=== PATIENT | male | born 1960 | race Caucasian/White ===

== ENCOUNTER 2018-01-25 04:07 | Observation (INO) | payer BC ==
[2018-01-25 04:37] LABS: ABS Basophils 0.1 10^3/ul (0-0.2); ABS Eosinophils 0.2 10^3/ul (0-0.6); ABS Lymphocytes 3.3 10^3/ul (1.0-4.8); ABS Monocytes 0.9 10^3/ul (0-0.8); ABS Neutrophils 4.2 10^3/ul (1.5-7.7); ABS Nucleated RBC 0 10^3/ul; Eosinophil % 1.9 % (0-6); Hematocrit 44 % (42-52); Hemoglobin 15.3 g/dl (14.0-18.0); Lymphocyte % 38.3 % (25-47); Mean Corpuscular HGB Conc 35 g/dl (31-36); Mean Corpuscular Hemoglobin 29 pg (27-31); Mean Corpuscular Volume 83 fL (80-94); Mean Platelet Volume 8.1 um3 (7.4-10.4); Nucleated Red Blood Cells % 0.1; Platelet Count 253 10^3/ul (150-450); Red Blood Count 5.23 10^6/ul (4.0-5.4); Red Cell Distribution Width 15 % (10.5-15); White Blood Count 8.7 10^3/ul (3.5-10.8)
[2018-01-25 04:46] LABS: INR 0.84 (0.77-1.02)
[2018-01-25 04:55] LABS: EGFR Non-African American 77.6 (>60)
[2018-01-25] MEDS ORDERED: Nitroglycerin TAB 0.4 MG* 0.4 MG TAB SL ONE (05:01)
[2018-01-25] MEDS ORDERED: Nitroglycerin TAB 0.4 MG* 0.4 MG TAB ONE (05:01)
[2018-01-25] MEDS ORDERED: Pantoprazole IV* 40 MG IV ONE (05:02)
[2018-01-25] MEDS ORDERED: Iohexol 350* (CONTRAST) 500 ML MDV IV ONE (05:25)
[2018-01-25] MEDS ORDERED: NS 0.9% 1000 ML* 1,000 ML IV ONE (06:55)
--- NOTE | 2018-01-25 08:33 | RAD ---
Indication: Shortness of breath. Contrast: Administered 87.0 ml of Contrast -- mg/ml CTA of the chest was performed without IV contrast demonstration. Coronal and sagittal reconstructed images were obtained. The pulmonary arterial tree is well opacified. There are no filling defects present to suggest pulmonary The thoracic aorta demonstrates no evidence of aortic dissection. No aneurysmal dilatation is noted. Inferior thyroid lobes are unremarkable. Small 3 to 5 mm pretracheal and precarinal nodes are noted. Small left hilar lymph nodes are noted measuring approximately 10 mm. Left hilar lymph node measures 11 mm. The heart demonstrates no pericardial effusion. Trachea and major bronchi appear patent. The lung apices are grossly unremarkable. Dependent changes are noted in both lung bases. No alveolar consolidation is noted. The axilla demonstrates no evidence of abnormal adenopathy. The visualized abdominal organs are otherwise unremarkable. Hepatic steatosis is otherwise noted. IMPRESSION: No definite evidence of pulmonary embolus is noted. No evidence of thoracic aortic dissection is noted. Minimal dependent atelectasis is noted. Hepatic steatosis.
[2018-01-25] MEDS ORDERED: Aspirin 81 mg CHEW TAB* 81 MG TAB.CHEW PO ONE (08:55)
[2018-01-25] MEDS ORDERED: Al Hydrox/Mg Hydrox/Simet LIQ* 30 ML UDC PO PRN ×2 (09:23→11:42)
--- NOTE | 2018-01-25 09:41 | ED ---
I, Kajal Harper, scribed for Gino Coy MD on 01/25/18 at 0732 . Progress - Progress Note Progress Note: This pr is a sign out from Dr. Pan at shift change pending CTA chest/thorax. - Results/Orders Results/Orders: CTA chest/thorax reveals: No definite evidence of pulmonary embolus is noted. No evidence of thoracic aortic dissection is noted. Minimal dependent atelectasis is noted. Hepatic steatosis. ED physician has reviewed this report. Re-Evaluation - Re-Evaluation First Eval Re-Evaluation Time: 08:50 Change: Unchanged - ED physician discussed imaging results and plan of admission with the pt and the pt understands and agrees to admission. Course/Dx - Course Course Of Treatment: DISCUSSED RESULTS WITH PATIENT AND . ADMIT HOSPITALIST. - Diagnoses Provider Diagnoses: Shortness of breath, Chest pressure - Provider Notifications Discussed Care Of Patient With: Yessenia Reed Time Discussed With Above Provider: 09:19 Instructed by Provider To: Admit As Inpatient Discharge - Sign-Out/Discharge Documenting (check all that apply): Discharge/Admit/Transfer - Discharge Plan Condition: Stable Disposition: ADMITTED TO [facility] Referrals: Cesario Nguyen MD [Primary Care Provider] - - Billing Disposition and Condition Condition: STABLE Disposition: [facility] [place] The documentation as recorded by the Leroy mane Stephanie accurately reflects the service I personally performed and the decisions made by , Gino Coy MD.
--- NOTE | 2018-01-25 09:50 | RAD ---
Indication: Shortness of breath. 2 views of the chest including dual energy PA views demonstrate no mediastinal shift. Heart is of normal size and configuration. Lung peterson are clear. No changes noted since previous exam of December 10, 2015. IMPRESSION: NO ACTIVE CARDIOPULMONARY DISEASE IS NOTED.
[2018-01-25] MEDS ORDERED: Naproxen TAB* 250 MG PO PRN (10:26)
[2018-01-25] MEDS ORDERED: Gaviscon CHEW TAB* 1 TAB PO PRN (10:26)
[2018-01-25] MEDS: Enoxaparin(*) 40 MG/0.4 ML SYR SUBCUT SCH (11:05)
--- NOTE | 2018-01-25 13:59 | HP ---
HISTORY AND PHYSICAL: DATE OF ADMISSION: 01/25/18 TIME OF ADMISSION: 10:15 a.m. PRIMARY CARE PHYSICIAN: Dr. Nguyen. CHIEF COMPLAINT: Chest pain. HISTORY OF PRESENT ILLNESS: This is a 57-year-old man with no past medical history who presents to the ED after he woke up with chest pressure and shortness of breath at 12:30 a.m. He has had an uneventful evening and went to bed without difficulty and woke up suddenly at 12:30 with what he describes as a "sharp hiccup and burning in his chest," which he occasionally does get and describes it as reflux but what was different this time was that he felt that he could not catch his breath and had a heaviness in the middle of his chest. The heaviness did not radiate and he cannot really describe it as pain, just a pressure and the shortness of breath had also never happened to him before in the middle of the night. This discomfort began to improve before EMS arrived and resolved in the emergency department after he got sublingual nitroglycerin. The shortness of breath and heaviness have also associated with a cough and at this time, he feels back to normal. This has never happened to him before; however, he did come to the emergency department about a year ago with chest pain that was thought to be musculoskeletal and he says he has had occasional chest tightness about twice in the past year. Other associated symptoms include recent lower extremity edema, decreased exercise tolerance, dyspnea on exertion, and a 20-pound weight gain in a few months. 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 He denies recent illness. Denies cough, sore throat, rhinorrhea, fevers, chills , nausea, vomiting, diarrhea, or constipation. PAST MEDICAL HISTORY: 1. Osteoarthritis status post TKA in September. 2. Lipomas, 3 of which have been excised. HOME MEDICATIONS: 1. Aleve p.r.n. 2. Gaviscon p.r.n. FAMILY HISTORY: He believes his dad had angina in his 50s. He does have brothers who have no medical history that he knows of and he does not know anyone in his family who has had coronary artery disease at a young age or cardiac at a young age. 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 He quit smoking several years ago but he smoked 4 packs per day for 30 years. He does not use alcohol and does not use any other drugs. PHYSICAL EXAMINATION GENERAL: Alert, obese man in no distress, resting on the stretcher comfortably. VITAL SIGNS: Temperature 98.3, heart rate 80, respiratory rate 18, pulse ox 96 % on room air, blood pressure 118/78. HEENT: Pupils equal, round and reactive to light. Oral mucosa is moist with no pharyngeal exudates or erythema. NECK: I cannot appreciate JVP. No cervical or supraclavicular lymphadenopathy. LUNGS: Clear bilaterally. No wheezes or rhonchi. CHEST: Regular rate and rhythm. No murmurs. I cannot feel his PMI. ABDOMEN: Soft, nontender, and nondistended. No guarding or rebound. Healed incision is present in the left upper quadrant. EXTREMITIES: No edema. No rashes. No ulcers. Healed TKA incision is noted on the right knee. LABORATORY DATA: White blood cells 8.7, hemoglobin 15.3, platelets 253. INR 0.84. Sodium 135, potassium 4.2, chloride 107, bicarb 23, creatinine 1.0, glucose 108. Troponin at 0423 is 0.00, at 0716 is 0.00, and at 10 o'clock is 0.00. BNP is 6. IMAGING: CT angio shows no definite evidence of PE noted, no evidence of thoracic aortic dissection noted, minimal dependent atelectasis is noted and hepatic steatosis. Chest x-ray: No active cardiopulmonary disease noted. This is the radiologist' s read. EKG: Normal sinus rhythm at 67, normal axis, normal intervals, no Q waves, no chamber hypertrophy, no ST change and an isolated T-wave inversion is noted in lead 3. ASSESSMENT AND PLAN: This is a 57-year-old man with no known past medical history who presents today with hiccups, chest heaviness, and shortness of breath that woke him from sleep at 12:30 a.m. 1. Chest pressure and shortness of breath. The differential for this is broad ; however, we have ruled out acute coronary syndrome with 3 negative troponins and nonischemic EKG. Still given his risk factors, I think an inpatient stress test is warranted. As such, in the setting of my concern for PND as he describes this morning, I would like to get a stress echocardiogram tomorrow. We will monitor him on telemetry. I also would like to do a trending pulse ox overnight to rule out obstructive sleep apnea and I am also keeping a GI source on my differential for the etiology of his symptoms that woke him overnight. 2. Hepatic steatosis. This was an incidental finding on his CT angio. I will discuss this finding with him and encourage weight loss and a low-fat diet and discussed the possibility of this progressing to cirrhosis. 3. Osteoarthritis. Continue Aleve p.r.n. 4. DVT prophylaxis. Lovenox daily. 5. Full code. TIME SPENT: 60 minutes was spent on this admission with over 30 minutes spent face- to-face with the patient. [id number]/[facility] #: [id number] JOSE A
--- NOTE | 2018-01-25 15:35 | RAD ---
Indication: Leg edema. Duplex Doppler sonography of the deep venous system of both lower extremities was performed. Bilaterally the common femoral veins, proximal greater saphenous veins, proximal deep femoral veins, femoral veins, popliteal veins, posterior tibial veins and left peroneal veins appear patent and compressible. Right peroneal veins are not visualized. IMPRESSION: NO EVIDENCE OF DEEP VENOUS THROMBOSIS OF EITHER LOWER EXTREMITY IS PRESENT. RIGHT PERONEAL VEINS ARE NOT VISUALIZED..
[2018-01-26 04:17] VITALS: BP 130/81
[2018-01-26] MEDS: Enoxaparin(*) 40 MG/0.4 ML SYR SUBCUT SCH (11:26)
[2018-01-26] MEDS ORDERED: Perflutren Lipid Microsphere* 3 ML VIAL ONE (13:40)
--- NOTE | 2018-01-27 07:31 | DS ---
CC: Dr. Nguyen* DISCHARGE SUMMARY: DATE OF ADMISSION: 01/25/18 DATE OF DISCHARGE: 01/26/18 PRINCIPAL DISCHARGE DIAGNOSES: 1. Obstructive sleep apnea. 2. Presumed chronic obstructive pulmonary disease. SECONDARY DISCHARGE DIAGNOSES: 1. Gastroesophageal reflux disease. 2. Osteoarthritis. HOSPITAL COURSE BY PROBLEM: 1. Obstructive sleep apnea: Mr. Hollingsworth presented to the emergency department with sudden onset of gasping for air and chest pressure that woke him up from sleep at 12:30 in the morning. Acute coronary syndrome was ruled out with 3 negative troponins and a nonischemic EKG. I was concerned that this was a reflection of PND versus JUS, so I ordered a stress echo and the stress echo was low risk for ischemia and showed a normal LV function. I also ordered a trending pulse ox overnight, which showed that he spent over 9 minutes, less than 88% confirming my suspicion of nocturnal hypoxia that likely caused his symptoms. This is in the setting of presumed COPD given his [id number] smoking history. He is also overweight with a BMI of 41 and expresses motivation in losing weight so that he can go off the CPAP. I am ordering CPAP for him at the time of discharge and Case Management has arranged a referral, so that he will receive it at his home. He and his were present when I explained these findings and they understand that he needs to followup with his PCP for monitoring of this condition. 2. Presumed COPD: Again, he does not have a formal diagnosis and has never had pulmonary function test that he knows of; however, given his [id number] smoking history, this is possible and he should have PFTs as an outpatient. 3. Hepatic steatosis: This was an incidental finding on a CT angio at admission. He was recommended weight loss and a low-fat diet. 4. GERD: He also complained of frequent nighttime reflux symptoms for which Gaviscon has worked well and relieved these symptoms. I recommended continuing this as needed. I recommended Mr. Hollingsworth follow up with his PCP within 1 week. [id number]/[facility] #: [id number] JOSE A
--- NOTE | 2018-01-29 17:01 | ED ---
Roldan Burdick Jennifer, scribed for Kirt Pan MD on 01/25/18 at 0414 . Shortness of Breath - HPI Summary HPI Summary: The patient is a 57 year old male who presents with shortness of breath and acid reflux since 2-3 hours ago. The patient reported taking Gaviscon for his reflux, but it did not help. He feels like he cant get air all the way in, is lightheaded, has swollen legs, and has difficulty swallowing. The patient denies chest pain. - History of Current Complaint Hx Obtained From: Patient Onset/Duration: Sudden Onset, Lasting Hours - 2-3 hours, Still Present Timing: Constant Current Severity: Moderate Aggrevating Factors: Nothing Alleviating Factors: Nothing Associated Signs & Symptoms: Negative - chest pain, Dizzy - lightheaded, Edema - Allergy/Home Medications Allergies/Adverse Reactions: Allergies Allergy/AdvReac Type Severity Reaction Status Date / Time No Known Allergies Allergy Verified 07/20/16 17:27 PMH/Surg Hx/FS Hx/Imm Hx Endocrine/Hematology History: Denies: Other Endocrine/Hematological Disorders - Hx blood clots Cardiovascular History: Denies: Hx Hypertension Respiratory History: Denies: Hx Chronic Obstructive Pulmonary Disease (COPD), Hx Sleep Apnea GI History: Reports: Hx Gastroesophageal Reflux Disease - Surgical History Surgery Procedure, Year, and Place: 3x tumors. Hernia. 2x RIGHT knee surgery. RIGHT 2nd toe amputation Infectious Disease History: Reports: Hx Shingles - Family History Known Family History: Positive: Cardiac Disease - Father - angina - Social History Alcohol Use: Rare Substance Use Type: Reports: None Smoking Status (MU): Former Smoker Have You Smoked in the Last Year: No Review of Systems ENT: Other - difficulty swallowing Positive: Shortness Of Breath Gastrointestinal: Other - reflux Positive: Edema Neurological: Other - lightheaded All Other Systems Reviewed And Are Negative: Yes Physical Exam - Summary Physical Exam Summary: GENERAL: ~Patient is a well developed and nourished M who is lying comfortable in the stretcher. ~Patient is not in any acute respiratory distress. HEAD AND FACE: Normocephalic EYES: PERRLA, EOMI x 2. EARS: Hearing grossly intact. MOUTH: Oropharynx within normal limits. NECK: Supple, trachea is midline, no adenopathy, no JVD, no carotid bruit. CHEST: Symmetric, no tenderness at palpation LUNGS: Clear to auscultation bilaterally. No wheezing or crackles. CVS: Regular rate and rhythm, S1 and S2 present, no murmurs or gallops appreciated. ABDOMEN: Soft, non-tender. Bowel sounds are normal. No abdominal abnormal pulsations. EXTREMITIES: Full ROM in all major joints, trace bilateral pedal edema, no cyanosis or clubbing. NEURO: Alert and oriented x 3. No acute neurological deficits. Speech is normal and follows commands. SKIN: Dry and warm Triage Information Reviewed: Yes Vital Signs Reviewed: Yes Diagnostics - Laboratory Result Diagrams: 01/25/18 04:23 01/25/18 04:23 Lab Statement: Any lab studies that have been ordered have been reviewed, and results considered in the medical decision making process. - Radiology CXR Xray Interpretation: No Acute Changes - Normal chest. Radiology Interpretation Completed By: ED Physician - EKG 0428 Cardiac Rate: NL EKG Rhythm: Sinus Rhythm - 67 BPM Course/Dx - Course Course Of Treatment: The patient is a 57 year old male who presents with shortness of breath and acid reflux since 2-3 hours ago. In the ED course the patient was given NTG, Protonix, and Omnipaque. Bloodwork was obtained. CXR and EKG obtained. The patient was diagnosed with shortness of breath and chest pressure. The patient will be signed out to Dr. Coy pending CTA Chest/ Thorax. - Diagnoses Provider Diagnoses: Shortness of breath, Chest pressure Discharge - Sign-Out/Discharge Documenting (check all that apply): Sign-Out Patient Signing out patient TO: Gino Coy - pending CTA chest/thorax - Discharge Plan Referrals: Cesario Nguyen MD [Primary Care Provider] - The documentation as recorded by the Roldan mane Jennifer accurately reflects the service I personally performed and the decisions made by , Kirt Pan MD.
== END 2018-01-26 17:17 | disposition home or self-care (01) ==
LOC: ED 04:07 → MEDTELE 09:23
PROVIDERS: ADMIT Internal Medicine; ATTEND Internal Medicine
DX: G47.33 Obstructive sleep apnea (adult) (pediatric) (principal); K21.9 Gastro-esophageal reflux disease without esophagitis; M19.90 Unspecified osteoarthritis, unspecified site; R07.9 Chest pain, unspecified; Z96.651 Presence of right artificial knee joint; K83.1 Obstruction of bile duct; K76.0 Fatty (change of) liver, not elsewhere classified; R06.02 Shortness of breath; Z87.891 Personal history of nicotine dependence
CPT/HCPCS: 36415; 71046; 71275; 80053; 82553; 83605; 83690; 83735; 83880; 84484; 85025; 85379; 85610; 85730; 93005; 93351; 93970; 94762; 96372; 96374; 99284; A9270-GY; G0378; J1650; Q9967

== ENCOUNTER 2018-02-09 07:45 | Emergency (ER) | payer BC, OTHER ==
[2018-02-09] MEDS ORDERED: Ketorolac INJ* 60 MG/2 ML VIAL IM ONE (08:10)
--- NOTE | 2018-02-09 08:27 | ED ---
Upper Extremity Pain - HPI Summary HPI Summary: Patient is a 57-year-old male presenting to the ED with bilateral hand pain and numbness. He states he was diagnosed with carpal tunnel and given braces. He has been using the braces at night. He states the braces had helped, however over the weekend the pain in his hands despite the braces worsened. Endorses a dull ache beginning at the wrist and extending throughout bilateral hands. Endorses paresthesias. Endorses weakness to the bilateral hands. Symptoms are worse at night and worse during the working hours. 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 Denies any other pain or symptoms at this time. Denies any diabetic history. PCP is Dr. Nguyen. He has not seen a hand surgeon, attended PT or OT. - History of Current Complaint Chief Complaint: EDExtremityUpper Stated Complaint: PAIN IN HANDS Time Seen by Provider: 02/09/18 07:51 Hx Obtained From: Patient Mechanism Of Injury: Unknown Onset/Duration: Started Weeks Ago, Atraumatic Timing: Constant Severity Initially: Moderate Severity Currently: Moderate Pain Location: Hand - Bilateral Character: Aching Aggravating Factor(s): Movement Alleviating Factor(s): Ice, Elevation Associated Signs & Symptoms: Positive: Weakness, Numbness/Tingling. Negative: Swelling, Redness, Bruising Related History: Occupational Injury, Dominant Hand Right - Risk Factors Non-Orthopedic Risk Factor: Negative DVT Risk Factors: Negative Septic Arthritis Risk Factor: Negative Compartment Syndrome Risk Factors: Pain, Paresthesias - Allergies/Home Medications Allergies/Adverse Reactions: Allergies Allergy/AdvReac Type Severity Reaction Status Date / Time bee venom protein (honey bee) Allergy Swelling Verified 02/09/18 07:48 PMH/Surg Hx/FS Hx/Imm Hx Previously Healthy: Yes Endocrine/Hematology History: Denies: Hx Anticoagulant Therapy, Hx Diabetes, Hx Anemia, Other Endocrine/ Hematological Disorders - Hx blood clots Cardiovascular History: Denies: Hx Angina, Hx Cardiac Arrest, Hx Coronary Artery Disease, Hx Embolism , Hx Hypercholesterolemia, Hx Hypertension, Hx Myocardial Infarction, Hx Valvular Heart Disease Respiratory History: Reports: Hx Pneumonia Denies: Hx Asthma, Hx Chronic Obstructive Pulmonary Disease (COPD), Hx Pulmonary Embolism, Hx Sleep Apnea GI History: Reports: Hx Gastroesophageal Reflux Disease, Other GI Disorders - inguinal hernias and repair on L side, colon polyps History: Denies: Hx Dialysis Musculoskeletal History: Reports: Other Musculoskeletal History - carpal tunnel Sensory History: Reports: Hx Contacts or Glasses Denies: Hx Hearing Aid Opthamlomology History: Reports: Hx Contacts or Glasses Neurological History: Denies: Hx Migraine, Hx Seizures, Hx Spinal Cord Injury, Hx Transient Ischemic Attacks (TIA) Psychiatric History: Denies: Hx Anxiety, Hx Depression - Surgical History Surgery Procedure, Year, and Place: 3x tumors. Hernia. 2x RIGHT knee surgery. RIGHT 2nd toe amputation Infectious Disease History: No Infectious Disease History: Reports: Hx Shingles Denies: Hx of Known/Suspected MRSA, Traveled Outside the [place] in Last 30 Days - Family History Known Family History: Positive: None, Cardiac Disease - Father - angina - Social History Occupation: Employed Full-time Lives: With Family Alcohol Use: Rare Hx Substance Use: No Substance Use Type: Reports: None Hx Tobacco Use: Yes Smoking Status (MU): Former Smoker Have You Smoked in the Last Year: No Review of Systems Constitutional: Negative Negative: Fever, Chills, Fatigue Negative: Palpitations, Chest Pain Negative: Shortness Of Breath, Cough Genitourinary: Negative Positive: no symptoms reported, see HPI Positive: Arthralgia, Myalgia, Decreased ROM Skin: Negative Positive: Weakness, Paresthesia All Other Systems Reviewed And Are Negative: Yes Physical Exam Triage Information Reviewed: Yes Vital Signs On Initial Exam: Initial Vitals Temp Pulse Resp BP Pulse Ox 96.6 F 82 18 119/82 98 02/09/18 07:48 02/09/18 07:48 02/09/18 07:48 02/09/18 07:48 02/09/18 07:48 Vital Signs Reviewed: Yes Appearance: Positive: Well-Appearing, Well-Nourished Skin: Positive: Warm, Skin Color Reflects Adequate Perfusion Head/Face: Positive: Normal Head/Face Inspection Neck: Positive: Supple, No Lymphadenopathy Respiratory/Lung Sounds: Positive: Clear to Auscultation, Breath Sounds Present Cardiovascular: Positive: RRR, Pulses are Symmetrical in both Upper and Lower Extremities Musculoskeletal: Positive: Pain @ - bilateral hands. Negative: Edema Left, Edema Right Neurological: Positive: Speech Normal Psychiatric: Positive: Normal, Affect/Mood Appropriate AVPU Assessment: Alert Diagnostics - Vital Signs Vital Signs Temp Pulse Resp BP Pulse Ox 02/09/18 07:48 96.6 F 82 18 119/82 98 - Laboratory Lab Statement: Any lab studies that have been ordered have been reviewed, and results considered in the medical decision making process. Course/Dx - Course Course Of Treatment: The patient is evaluated for carpal tunnel syndrome versus other etiology. Physical examination is unremarkable. Positive Tinel test, positive Phalen maneuver, compression over the transverse carpal ligament causes worsening paresthesias. Pulses +2 bilaterally. He has been taking Aleve twice daily for symptoms. I have advised he use the braces 24 hours/day at this time, is given Toradol for anti-inflammatory properties as well as pain control. I will also give him a short course of steroids. I discussed that we do not do cortisone injections into the ED, but should follow up with his PCP. I have also advised he speak with Dr. Ledbetter or Dr. Larose for further management. I have given him a follow-up. - Diagnoses Provider Diagnoses: Carpal tunnel syndrome Discharge - Sign-Out/Discharge Documenting (check all that apply): Discharge/Admit/Transfer - Discharge Plan Condition: Stable Disposition: HOME Prescriptions: Ketorolac TAB * [Toradol TAB *] 10 mg PO Q6H #16 tab predniSONE TAB* [Deltasone TAB*] 50 mg PO DAILY #5 tab MDD 1 Patient Education Materials: Paresthesia (ED), Carpal Tunnel Surgery (DC) Forms: *Work Release Referrals: Cesario Nguyen MD [Primary Care Provider] - Mike Ledbetter MD [Medical Doctor] - Additional Instructions: Please follow-up with Dr. Ledbetter Call tomorrow for an appointment Use the cockup splint as much as possible Toradol 4 times daily 4 days You may use the first dose this afternoon Do not use Aleve, ibuprofen or naproxen while taking this medication You may however use Tylenol intermittently for pain control Do not overuse the hands Gentle stretches of the wrist with massage may help Please follow back up with your PCP regarding any steroid injections - Billing Disposition and Condition Condition: STABLE Disposition: HOME
[2018-02-09 08:49] VITALS: BP 130/79
== END 2018-02-09 08:47 | disposition home or self-care (01) ==
LOC: ED 07:45
DX: G56.03 Carpal tunnel syndrome, bilateral upper limbs (principal); K21.9 Gastro-esophageal reflux disease without esophagitis; Z89.421 Acquired absence of other right toe(s); Z91.030 Bee allergy status; Z87.891 Personal history of nicotine dependence
CPT/HCPCS: 96372; 99282; J1885

== ENCOUNTER 2018-08-24 08:03 | Day surgery (SDC) | payer OTHER ==
[~2018-08-24 08:03] MED LIST: Buffered Lidocaine 0.9% SYRIN* 5 ML/SYR SYRINGE INTRADERM ONE
[2018-08-24] MEDS ORDERED: Bupivacaine 0.25% SDV PF* 10 ML VIAL INJ ONE (10:12)
[2018-08-24] MEDS ORDERED: Naloxone* 0.4 MG/ML 1 ML VIAL IV PRN (10:45)
[2018-08-24] MEDS ORDERED: fentaNYL* 50 MCG/ML 2 ML VIAL (100 MCG VIAL) ONE (11:49)
[2018-08-24] MEDS ORDERED: Midazolam* 1 MG/ML 2 ML VIAL (2 MG) ONE (11:49)
[2018-08-24] MEDS ORDERED: Propofol* 10 MG/ML 20 ML BTL ONE (12:08)
[2018-08-24 13:24] VITALS: BP 118/84
--- NOTE | 2018-08-25 01:32 | OP ---
DATE OF OPERATION: 08/24/18 - SDS DATE OF : 64 SURGEON: Mike Ledbetter MD SENIOR CONTROLS ENGINEER: None. ANESTHESIOLOGIST: Dr. Miller ANESTHESIA: Local MAC. PRE-OP DIAGNOSIS: Right carpal tunnel syndrome. POST-OP DIAGNOSIS: Right carpal tunnel syndrome. OPERATIVE PROCEDURE: Right open carpal tunnel release. INDICATIONS: Carroll has progressive carpal tunnel syndrome. We had talked about risks and benefits. He does want us to proceed with surgery. ESTIMATED BLOOD LOSS: 1 mL. COMPLICATIONS: None. FINDINGS: See above and below. DESCRIPTION OF PROCEDURE: Carroll was seen in the preoperative holding area. The correct site, side, and procedure were identified. We came back to the operating room. The arm was prepped and draped in the usual fashion. A time- out was performed. The arm was exsanguinated with the Esmarch and the tourniquet was inflated to 250 mmHg. I made a 2-cm longitudinal incision in the proximal palm in the typical location for an open carpal tunnel release. Dissection was carried down through the subcutaneous tissue and palmar fascia. The fascia was released distally and proximally with the tenotomy scissors. The transverse carpal ligament was released off the radial aspect of the hook of the hamate and the release was completed distally then proximally under direct visualization. Proximally, a Viktor retractor was placed to retract the subcutaneous tissue, so that the remainder of the transverse carpal ligament could be seen. Once I checked the release and it was complete proximally and distally, and there was no compression on the nerve, we irrigated out the wound. The skin was closed with 4-0 nylon suture. The wound was dressed and he was taken to recovery room in stable condition. [id number]/[facility] #: [id number] [facility] HOSPITALMichelle
== END 2018-08-24 13:23 | disposition home or self-care (01) ==
LOC: OR 08:03
PROVIDERS: ATTEND Orthopaedic Surgery Hand Surgery
DX: G56.01 Carpal tunnel syndrome, right upper limb (principal); Z87.891 Personal history of nicotine dependence
CPT/HCPCS: J2250; J2704; J3010; J3490

== ENCOUNTER 2018-09-07 08:44 | Day surgery (SDC) | payer OTHER ==
[~2018-09-07 08:44] MED LIST changes: +Lactated Ringers 1000 ML Bag* 1,000 ML IV SCH
[2018-09-07] MEDS ORDERED: fentaNYL* 50 MCG/ML 2 ML VIAL (100 MCG VIAL) ONE (08:58)
[2018-09-07] MEDS ORDERED: Midazolam* 1 MG/ML 2 ML VIAL (2 MG) ONE (08:58)
[2018-09-07] MEDS ORDERED: Propofol* 10 MG/ML 20 ML BTL ONE (09:00)
[2018-09-07] MEDS ORDERED: Naloxone* 0.4 MG/ML 1 ML VIAL IV PRN (09:50)
[2018-09-07] MEDS ORDERED: Bupivacaine 0.25% SDV PF* 10 ML VIAL INJ ONE ×2 (10:24→10:26)
[2018-09-07 11:02] VITALS: BP 123/84
--- NOTE | 2018-09-07 16:37 | OP ---
DATE OF OPERATION: 09/07/18 - [facility] DATE OF : 64 SURGEON: Mike Ledbetter MD PRESIDENT EDUCATIONAL INSTITUTION: [facility]. ANESTHESIOLOGIST: Dr. Wills. ANESTHESIA: Local MAC. PRE-OP DIAGNOSIS: Left carpal tunnel syndrome. POST-OP DIAGNOSIS: Left carpal tunnel syndrome. OPERATIVE PROCEDURE: Left carpal tunnel release. 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 We did the right side a few weeks ago. We are now here to do the left. He understands the risks and benefits. ESTIMATED BLOOD LOSS: 1 mL. COMPLICATIONS: None. FINDINGS: See above and below. DESCRIPTION OF PROCEDURE: Carroll was seen in the preoperative holding area. The correct site, side, and procedure were identified. We came back to the operating room where we had a time-out and the operative area was anesthetized with 0.25% Marcaine. The arm was then prepped and draped in the usual fashion. A time-out was performed. The arm was exsanguinated with the Esmarch and the tourniquet was inflated to 275 mmHg. I made a 2-cm longitudinal incision in the proximal palm in the typical location for an open carpal tunnel release. Dissection was carried down through the subcutaneous tissue and palmar fascia. The transverse carpal ligament was released just off the radial aspect of the hook of the hamate. The release was completed distally and proximally with the tenotomy scissors and 15-blade until everything was completely released. Proximally, I had released the subcutaneous tissue and fascia and retracted dorsally with the Viktor retractor and the proximal transverse carpal ligament and distal antebrachial fascia was released under direct visualization. Once the release was confirmed, we irrigated out the wounds. Skin was closed with 4-0 nylon suture. Soft dressings were applied. Tourniquet was deflated and he was taken to the recovery room in stable condition. [id number]/[facility] #: [id number] MTDD
== END 2018-09-07 11:21 | disposition home or self-care (01) ==
LOC: OR 08:44
PROVIDERS: ATTEND Orthopaedic Surgery Hand Surgery
DX: G56.02 Carpal tunnel syndrome, left upper limb (principal); G47.33 Obstructive sleep apnea (adult) (pediatric); Z87.891 Personal history of nicotine dependence
CPT/HCPCS: J2250; J2704; J3010; J3490